=== PATIENT | female | born 1990 | race Caucasian/White ===

== ENCOUNTER 2017-05-31 17:31 | Emergency (ER) | payer SELFPAY ==
[~2017-05-31] VITALS: Ht 162.6 cm; Wt 95.3 kg
[~2017-05-31 17:31] MED LIST: ALBU0.5N2
[2017-05-31 17:42] VITALS: BP 133/82
[2017-05-31] MEDS ORDERED: BACITRACIN TOP OINT 1 UD PKG TOP ONE (21:30)
[2017-05-31] MEDS ORDERED: LIDOCAINE 1% HCL (LOCAL ANESTH.) INJ 20ML MDV IJ ONE (21:30)
[2017-05-31] MEDS ORDERED: traMADol HCL 50 MG TAB PO ONE (22:30)
== END 2017-05-31 23:40 | disposition home or self-care (01) ==
LOC: ER 17:31
DX: S92.424A Nondisplaced fracture of distal phalanx of right great toe, initial encounter for closed fracture (principal); S91.211A Laceration without foreign body of right great toe with damage to nail, initial encounter; J45.909 Unspecified asthma, uncomplicated; Z91.013 Allergy to seafood; Z91.041 Radiographic dye allergy status; Z88.6 Allergy status to analgesic agent; W22.8XXA Striking against or struck by other objects, initial encounter; Y93.89 Activity, other specified; Y99.8 Other external cause status; Y92.89 Other specified places as the place of occurrence of the external cause
CPT/HCPCS: 12002; 73660; 99284; J2001

== ENCOUNTER 2017-06-14 12:01 | Emergency (ER) | payer SELFPAY ==
[~2017-06-14] VITALS: Ht 162.6 cm; Wt 95.3 kg
[2017-06-14 12:38] VITALS: BP 134/87
== END 2017-06-14 12:58 | disposition home or self-care (01) ==
LOC: ER 12:01
DX: S91.111D Laceration without foreign body of right great toe without damage to nail, subsequent encounter (principal); X58.XXXD Exposure to other specified factors, subsequent encounter